=== PATIENT | male | born 1985 | race Caucasian/White ===

== ENCOUNTER 2017-02-20 14:43 | Emergency (ER) | payer OTHER ==
[2017-02-20 16:27] VITALS: BP 126/86
== END 2017-02-20 16:27 | disposition home or self-care (01) ==
LOC: ED 14:43
DX: J20.9 Acute bronchitis, unspecified (principal); R11.2 Nausea with vomiting, unspecified; I10 Essential (primary) hypertension; G89.29 Other chronic pain; M25.579 Pain in unspecified ankle and joints of unspecified foot
CPT/HCPCS: J7613; J7644; Q0092

== ENCOUNTER 2019-02-26 13:55 | Emergency (ER) | payer OTHER ==
[~2019-02-26] VITALS: Ht 172.7 cm; Wt 105.7 kg
[2019-02-26 14:05] VITALS: BP 147/99; Ht 172.7 cm; Wt 105.7 kg
== END 2019-02-26 14:55 | disposition home or self-care (01) ==
LOC: ED 13:55
DX: R51 Headache (principal); I10 Essential (primary) hypertension; G89.29 Other chronic pain